=== PATIENT | female | born 1975 ===

== ENCOUNTER 2021-05-23 09:27 | Outpatient (CLI) | payer OTHER | END 2021-05-23 09:32 | disposition home or self-care (01) | LOC: PPH VACUNA 09:27 | PROVIDERS: ATTEND Emergency Medicine Pediatric Emergency Medicine | DX: Z23 Encounter for immunization (principal) ==

== ENCOUNTER 2023-01-07 09:53 | Outpatient (CLI) | payer OTHER | END 2023-01-07 10:04 | disposition home or self-care (01) | LOC: RAD 09:53 | PROVIDERS: ATTEND Legal Medicine | DX: R05.8 Other specified cough (principal) ==

== ENCOUNTER 2023-09-11 15:05 | Outpatient (CLI) | payer OTHER | END 2023-09-11 15:18 | disposition home or self-care (01) | LOC: MAMO-SONO 15:05 | PROVIDERS: ATTEND Obstetrics & Gynecology | DX: N60.11 Diffuse cystic mastopathy of right breast (principal); N60.12 Diffuse cystic mastopathy of left breast ==

== ENCOUNTER 2025-02-08 09:08 | Outpatient (CLI) | payer OTHER | END 2025-02-08 09:12 | disposition home or self-care (01) | LOC: MAMO-SONO 09:08 | PROVIDERS: ATTEND Obstetrics & Gynecology | DX: N60.11 Diffuse cystic mastopathy of right breast (principal); N60.12 Diffuse cystic mastopathy of left breast ==

== ENCOUNTER → 2025-06-17 | Outpatient (CLI) | payer OTHER | END | disposition home or self-care (01) | LOC: SONOGRAMA 13:24 | PROVIDERS: ATTEND Obstetrics & Gynecology | DX: R10.20 Pelvic and perineal pain unspecified side (principal) ==